=== PATIENT | male | born 1945 | race Caucasian/White ===

== ENCOUNTER 2016-10-19 17:25 | Emergency (ER) | payer MEDICARE, BC ==
[~2016-10-19] VITALS: Ht 177.8 cm; Wt 79.4 kg
[~2016-10-19 17:25] MED LIST: ACET325T9 PO; GABA-586 PO; GUAR1TAB6 PO; LORA5TAB7 PO; MELO15TA6 PO; MULT-189 PO; NAPR250T PO
--- NOTE | 2016-10-19 19:03 | PHYS DOC ---
Past Medical History Past Medical History: Cancer, GERD Past Surgical History: Appendectomy Additional Past Surgical Histo: Prostatectomy, angiogram Alcohol Use: Rarely Drug Use: None Adult General Chief Complaint Chief Complaint: POST-OP PROBLEM HPI HPI 71-year-old male with a past medical history of having an abdominal angiogram performed on last Saturday. This was performed at [facility]. Presenting to the emergency today after having right groin pain this started approximately 1 hour ago. He reports getting in his car when he had a sudden pain in his right groin that was 10 out of 10. It was nonradiating. He denies any swelling in his groin at that time. Over the past hour his pain has improved. Currently he is 3 out of 10. He reports normal sensation in his right lower extremity with normal strength. Review of systems is negative for chest pain shortness of breath abdominal pain nausea vomiting fevers or chills. He denies hematuria or bloody stools. All other review of systems is negative unless otherwise noted in history of present illness. Review of Systems Review of Systems SEE ABOVE. Allergies Allergies Allergies Coded Allergies Type Severity Reaction Last Updated Verified Penicillins Allergy Intermediate Rash 09/10/13 Yes Physical Exam Physical Exam Constitutional: Well developed, well nourished, no acute distress, non-toxic appearance. HENT: Normocephalic, atraumatic, bilateral external ears normal, oropharynx moist, no oral exudates, nose normal. [] Eyes: PERRLA, EOMI, conjunctiva normal, no discharge. Neck: Normal range of motion, no tenderness, supple, no stridor. Cardiovascular:Heart rate regular rhythm, no murmur [] Lungs & Thorax: Bilateral breath sounds clear to auscultation Abdomen: Bowel sounds normal, soft, no tenderness, no masses, no pulsatile masses. The patient's right groin shows no swelling. The patient's incision site is clean dry and intact. There is no pulsatile mass present. No mass with Valsalva maneuver present. The patient's right lower extremity is neurovascularly intact with 2 second cap refill. nl sensation and motor. Palpable pulse in the right dorsalis pedis. Skin: Warm, dry, no erythema, no rash. [] Back: No tenderness, no CVA tenderness. Extremities: No tenderness, no cyanosis, no clubbing, ROM intact, no edema. [] Neurologic: Alert and oriented X 3, normal motor function, normal sensory function, no focal deficits noted. Psychologic: Affect normal, judgement normal, mood normal. Current Patient Data Vital Signs Vital Signs Date Time Temp Pulse Resp B/P Pulse Ox O2 Delivery O2 Flow Rate FiO2 10/19/16 20:43 76 18 140/73 97 Room Air 10/19/16 17:43 97.9 97.9 EKG EKG [] Radiology/Procedures Radiology/Procedures [] Course & Med Decision Making Course & Med Decision Making Pertinent Labs and Imaging studies reviewed. (See chart for details) 71-year-old male presenting to the emergency department today after having a abdominal angiogram performed at a local [facility]. he complains today of right groin pain. Vital signs unremarkable. Pertinent physical exam shows no swelling in the groin. The patient had normal neurovascular status distally. Ultrasound performed showed normal femoral artery. no pseudoaneurysm formation. There was hematoma formation likely 2/2 to the procedure. I discussed the case with Dr Crespo who agreed with the plan. I recommended the patient follow up with his vascular surgeon over the next day or 2 for further evaluation workup and care. Dragon Disclaimer Dragon Disclaimer This electronic medical record was generated, in whole or in part, using a voice recognition dictation system. Departure Departure Impression: Primary Impression: Right groin pain Disposition: 01 HOME, SELF-CARE Condition: STABLE Referrals: LUISA WEINBERG MD (PCP) Patient Instructions: Groin Site Care Additional Instructions: Thank you for allowing us to participate in your care today. Followup with your primary care physician in 3 days if your symptoms do not improve. If you do not have a primary care provider you can ask for a list of our primary care providers. Return to the emergency department you have any new or concerning findings. This should be evaluated by the primary care physician and any necessary consulting services for continued management within a few days after discharge. Return to emergency room if you have any new or concerning symptoms including but not limited to fever, chills, nausea, vomiting, intractable pain, any new rashes, chest pain, shortness of air, uncontrolled bleeding, difficulty breathing, and/or vision loss. MARILIN CR MD Oct 19, 2016 19:03
--- NOTE | 2016-10-19 20:06 | RAD ---
PROCEDURE Duplex evaluation of the right inguinal region 10/19/2016 HISTORY Severe right groin pain. History of recent arteriogram. TECHNIQUE Using a combination of real-time ultrasound imaging and color flow and pulse Doppler imaging techniques, duplex evaluation of the right common femoral and proximal right superficial femoral arteries and veins in the right inguinal region was performed. Multiple images were obtained. FINDINGS The right common femoral artery and proximal right superficial femoral artery are patent. The proximal right superficial femoral vein and right common femoral vein are patent. Mild atherosclerotic plaque formation is seen involving the right common femoral artery. No pseudoaneurysm is seen. A 3.2 centimeter hematoma is seen 2 centimeters deep to the skin surface. IMPRESSION 3.2 centimeter hematoma is seen in the right inguinal region. No pseudoaneurysm is seen. Electronically signed by: Rafael Reece MD (Oct 19, 2016 20:05:39)
[2016-10-19 20:43] VITALS: BP 140/73
== END 2016-10-19 21:20 | disposition home or self-care (01) ==
LOC: ER 17:25
DX: R10.30 Lower abdominal pain, unspecified (principal); K21.9 Gastro-esophageal reflux disease without esophagitis; Z88.0 Allergy status to penicillin; Z90.49 Acquired absence of other specified parts of digestive tract
CPT/HCPCS: 93923; 99284-25

== ENCOUNTER → 2018-11-19 | Outpatient (CLI) | payer MEDICARE, BC ==
[~2018-11-19] MED LIST changes: +ATOR40TA59 PO; +COLE1TAB2 PO; -GABA-586 PO; +GABA300C18 PO; +HYDR-2761 PO; +NAPR220T70 PO; +PSYL0.5215 PO; +RANI300T PO
--- NOTE | 2018-11-19 12:55 | KCIC ---
EXAMINATION: Magnetic resonance imaging (MRI) of the cervical spine without contrast 11/19/2018 12:30 PM HISTORY: Degenerative disc disease of the cervical spine. Neck pain, worsening for the past few months. TECHNIQUE: Multiplanar multi-weighted MRI of the cervical spine was performed without intravenous contrast using the standard cervical spine protocol. Contrast information: None administered COMPARISON: MRI cervical spine April 13, 2014 FINDINGS: The alignment of the cervical spine is normal. There is subtle height loss involving T3 which appears chronic. No acute fracture is identified; however, if trauma is suspected, a CT scan would be a more sensitive examination for fractures. The craniocervical junction is normal. The visualized portions of the skull base and the posterior fossa are normal. The spinal cord demonstrates normal signal intensity on all sequences. There is moderate disc height loss at C6-C7 with endplate remodeling and vacuum disc phenomenon. There is disc desiccation at all levels of the cervical spine. No soft tissue abnormality is identified. Normal signal voids are present in the vertebral arteries. C2-C3: The disk is normal in configuration. There is no facet arthropathy. There is no uncovertebral joint disease. There is no neuroforaminal stenosis. There is no spinal canal stenosis. C3-C4: There is a central disc protrusion. There is mild facet arthropathy. There is no uncovertebral joint disease. There is no neuroforaminal stenosis. There is no spinal canal stenosis. C4-C5: There is mild disc bulge. There is mild facet arthropathy. There is no uncovertebral joint disease. There is mild neuroforaminal stenosis. There is mild spinal canal stenosis without deformity of the cord. C5-C6: There is mild disc bulge asymmetric to the right. There is moderate facet arthropathy. There is mild uncovertebral joint disease. There is moderate right and mild left neuroforaminal stenosis. There is mild spinal canal stenosis. C6-C7: There is a posterior disc osteophyte complex asymmetric to the right. There is moderate to advanced facet arthropathy. There is moderate uncovertebral joint disease. There is severe right and moderate left neuroforaminal stenosis. There is mild to moderate spinal canal stenosis common exacerbated by ligamentum flavum infolding. C7-T1: Mild disc bulge asymmetric to the right. There is no facet arthropathy. There is no uncovertebral joint disease. There is no neuroforaminal stenosis. There is no spinal canal stenosis. IMPRESSION: Mild to moderate degenerative changes of the cervical spine as described in detail above. Electronically signed by: Karli Caballero MD (11/19/2018 12:52 PM) [facility]
== END | disposition home or self-care (01) ==
LOC: KCIC MRI 12:11
PROVIDERS: ATTEND Family Medicine
DX: M47.812 Spondylosis without myelopathy or radiculopathy, cervical region (principal); M48.02 Spinal stenosis, cervical region; M50.21 Other cervical disc displacement, high cervical region; M12.88 Other specific arthropathies, not elsewhere classified, other specified site
CPT/HCPCS: 72141

== ENCOUNTER → 2018-12-02 | Outpatient (CLI) | payer MEDICARE, BC ==
[~2018-12-02] MED LIST changes: +IOHEXOL 180 MG/ML 10 ML VIAL. ONE; +methylPREDNISolone ACETATE 40 MG/ML VIAL. ONE; +methylPREDNISolone ACETATE 80 MG/ML VIAL. ONE
--- NOTE | 2018-12-02 20:17 | PAIN ---
DATE OF SERVICE: 12/02/2018 PROGRESS NOTE FOR PAIN CLINIC DIAGNOSIS: Cervical radiculopathy with cervical degenerative disk disease and cervical spinal stenosis. HISTORY OF PRESENT ILLNESS: The patient is a 73-year-old male who returns for followup, last seen in 2014. The patient underwent cervical epidural steroid injection with good results he reports at that time. The pain has been returning now for about 6 months to a year and has been in the base of the neck and shoulders, worse on the left than the right, but present bilaterally and into the left arm and upper extremity with some tingling and numbness in the forearm, into the hand on the left side, but without loss of strength. The patient reports also some significant pain in the base of the neck and on the right side. The patient reports it is constant, sharp, stabbing, changes during the day with activity, worse with reaching over his left arm, worse with rotational motion of the cervical spine, both laterally, worse on the left and right. The patient reports it is tingling and numbness in the arm on the left side primarily. He reports no loss of motor function, but some fatigability with the left arm and hand with picking up items, reaching over his arm, reaching over his head that is with his left arm, repetitive motions and driving a car with his left arm. The patient reports it does not awaken him from sleep at night, does not affect his bowel or bladder control or his ability to walk. He has had the exercise, which he is doing currently, which seemed to help to some extent. He has had some physical therapy as well and some massage techniques in the neck and still playing golf and reports it does not disturb his game very much. He had some epidural injections again in 2014 and did very well with those. The patient has hydrocodone available, also he is taking Tylenol, Aleve, Motrin, all of which do seem to help except for the Tylenol. The patient reports no loss of motor function, but significant fatigability with the left arm, especially compared to the right. The patient reports no significant disability from the pain. PAST MEDICAL HISTORY: Significant for gastroesophageal reflux, irritable bowel syndrome, prostate cancer, seasonal sinus allergies, headaches, arthritis. PREVIOUS SURGERIES: Includes prostatectomy, appendectomy and tonsillectomy. CURRENT MEDICATIONS: Include Tylenol, Metamucil, Aleve, hydrocodone, colestipol, Zantac, and atorvastatin. ALLERGIES: THE PATIENT IS ALLERGIC TO PENICILLIN. FAMILY HISTORY: Significant for no major medical problems or conditions that he is aware of. SOCIAL HISTORY: The patient does not smoke, drinks about 1 beer a day, no other alcohol, and does not use any illegal, illicit or recreational drugs. He is and lives with his spouse. Lives locally in [place], [place] and is currently retired, but stays very active, especially with playing golf. REVIEW OF SYSTEMS: Positive for those items mentioned in history of present illness. All systems reviewed and otherwise negative. It is complete, full and well documented on the patient's chart. PHYSICAL EXAMINATION: VITAL SIGNS: The patient's blood pressure is 132/85, pulse 69, respirations 18, temperature 98.1 degrees Fahrenheit, height 5 feet 10 inches, weighs 185 pounds. GENERAL: The patient is awake, alert, oriented, appropriate, very pleasant demeanor. HEENT: Shows normocephalic, atraumatic. Extraocular movements are intact and symmetrical. The patient is wearing eyeglasses. Oral cavity: Mucous membranes are moist and pink. Dentition is intact. NECK: Shows anterior throat supple without palpable lymphadenopathy noted. Swallow reflex is symmetrical. CHEST: Shows normal on inspection. Breath sounds are clear to auscultation bilaterally. HEART: Shows S1, S2 clear. No murmurs auscultated. ABDOMEN: Soft, nontender, nondistended. No palpable organomegaly is noted. No rebound or guarding demonstrated. BACK: Shows spine grossly in the midline. Normal-appearing cervical lordotic curvature, thoracic kyphotic curvature and lumbar lordotic curvature. Cervical paraspinous muscle shows symmetrical on inspection, on palpation shows some moderate tenderness diffusely in the upper, middle and lower distribution of the paraspinous muscles bilaterally, but only diffusely without significant radiation, without atrophy, hypertrophy and without trigger points noted. The patient shows good rotational motion of cervical spine with significant tenderness, especially with far lateral rotation to the left past 45 degrees and moderate tenderness to the right at 45 degrees and past full extension, again with some pain in the base of the neck bilaterally, but better with forward flexion, he is able to perform fully also. EXTREMITIES: The patient's upper extremities show deep tendon reflexes 2+ in the biceps and triceps tendons. Motor exam is strong with agency recruiter strength rated at 5/5, as is bicep and tricep flexion. Peripheral pulses are 2+ in radial distribution. No peripheral edema is noted. The patient does have slightly larger appearing fingers on the left hand than the right. No pitting of the edema. The patient is taking his wedding ring off his left hand and does have obvious depression where this was present and reports has been off for several weeks. Shoulder shrug is strong and intact without loss of strength on resistance, as is abduction of the shoulders to 90 degrees without loss of strength on resistance as well. Options were discussed with the patient. The patient's old chart was reviewed as his current medication regimen updated. Current review of systems updated today as well. We will proceed with a cervical epidural steroid injection today with fluoroscopic guidance. Risks were again discussed including, but not limited to bleeding, infection, possibility of epidural hematoma, subsequent neurological compromise, dural puncture, headaches, spinal cord and/or nerve damage, side effects of steroid medication and poor results regarding pain control. The patient understands and wished to proceed. The patient will return to the clinic in approximately 2 weeks for followup, was counseled on return appointment, activity level and side effects to be aware of. DIAGNOSIS: Cervical radiculopathy with cervical degenerative disk disease and cervical spinal stenosis. PROCEDURE: Cervical epidural steroid injection, translaminar approach at C6-C7 level using C-arm fluoroscopic guidance under sterile prep and drape using local anesthetic. MEDICATION INJECTED: A total of 120 mg Depo-Medrol plus 5 mL of preservative-free normal saline and 2 mL of Isovue for contrast. CONDITION AT DISCHARGE: Stable. The patient tolerated the procedure well, had no complications. KEON LOPEZ MD DR: ERICA/dimitris JOB#: [id number] / [id number]
== END | disposition home or self-care (01) ==
LOC: PNCL 10:03
PROVIDERS: ATTEND Anesthesiology
DX: M50.123 Cervical disc disorder at C6-C7 level with radiculopathy (principal); M48.02 Spinal stenosis, cervical region; K21.9 Gastro-esophageal reflux disease without esophagitis; M19.90 Unspecified osteoarthritis, unspecified site; Z85.46 Personal history of malignant neoplasm of prostate; Z90.49 Acquired absence of other specified parts of digestive tract; Z98.890 Other specified postprocedural states; Z90.79 Acquired absence of other genital organ(s); Z79.899 Other long term (current) drug therapy; Z88.0 Allergy status to penicillin; Z72.89 Other problems related to lifestyle
CPT/HCPCS: 62321; J1030; J1040; Q9965

== ENCOUNTER → 2018-12-16 | Outpatient (CLI) | payer MEDICARE, BC ==
--- NOTE | 2018-12-17 00:01 | PAIN ---
DATE OF SERVICE: 12/16/2018 PROGRESS NOTE FOR PAIN CLINIC DIAGNOSES: 1. Cervical radiculopathy with cervical degenerative disk disease and cervical spinal stenosis. 2. Lumbar radiculopathy with lumbar degenerative disk disease. HISTORY OF PRESENT ILLNESS: The patient is a 73-year-old male who returns for followup status post cervical epidural steroid injection x 1. The patient reports doing very well, near 100% improvement with gradual return, but the pain is much less than baseline. The patient reports it is only 2 on a scale of 10 currently, it can be as high as an 8 on a scale of 10. His main pain is in the low back and the right lower extremity. The patient reports it is into the right hip, right lateral thigh, anterior thigh, much more noticeable with increased activity over the past few weeks with the yard work, does not awaken him from sleep at night, better when he is off his feet, but worse when he is active up and around, walking, standing, stooping and bending. The patient reports it is aching and stabbing. He has some radiating pain in the right leg as well as the neck and shoulder. He is doing much better again with close to 100% improvement, although gradual return of the pain only moderately in the base of the neck and shoulders. The patient reports no new motor or sensory deficits, no new bowel or bladder incontinence or other complaints. PHYSICAL EXAMINATION: VITAL SIGNS: The patient's blood pressure is 145/80, pulse is 65, respirations are 18, temperature is 98.1 degrees Fahrenheit, weight is 180 pounds. GENERAL: The patient is awake, alert, oriented, appropriate, very pleasant demeanor. HEENT: Head shows normocephalic, atraumatic. Extraocular movements are intact and symmetrical. Oral cavity, mucous membranes are moist and pink. Dentition is intact. NECK: Shows anterior throat supple without palpable lymphadenopathy noted. Swallow reflex is symmetrical. CHEST: Shows normal on inspection. Breath sounds clear to auscultation bilaterally. HEART: Shows S1, S2 clear. No murmurs auscultated. ABDOMEN: Soft, nontender, nondistended. No palpable organomegaly is noted. No rebound or guarding demonstrated. BACK: Shows spine grossly in the midline. Normal-appearing cervical lordotic curvature, thoracic kyphotic curvature and lumbar lordotic curvature. Cervical paraspinous muscle shows symmetrical on inspection; on palpation shows some mild tenderness diffusely in the inferior aspect of the cervical paraspinous muscles as well as the bilateral trapezius musculature superiorly, but without radiation. The patient has good rotational motion of cervical spine laterally as well as extension and flexion without significant pain reported. His low back shows some moderate tenderness in the middle and lower distribution of paraspinous muscles, slightly more on the right than the left in the lumbar distribution, but without difficulty with rotation as far as greater than 10 degrees right and left as well as extension greater than 10 degrees, forward flexion 45 degrees without significant pain reported. EXTREMITIES: The patient's upper extremities show deep tendon reflexes 2+ in the biceps and triceps tendons. Motor exam is strong with fuel tank sealer and tester strength rated at 5/5 and equal. Lower extremities show deep tendon reflexes 2+ in the patellar tendons, 1+ tendo calcaneus tendons. Motor exam is strong with 5/5 dorsiflexion, extension and equal. Peripheral pulses are 2+ radial, 1+ posterior tibia. No peripheral edema is noted in the upper or lower extremities. Options were discussed with the patient. The patient's old chart was reviewed as was his current medication regimen updated. Current review of systems updated today as well. We will proceed with a lumbar epidural steroid injection today with fluoroscopic guidance. Risks were discussed including but not limited to bleeding, infection, possibility of epidural hematoma, subsequent neurological compromise, dural puncture, headaches, spinal cord and/or nerve damage, side effects of steroid medication and poor results regarding pain control. The patient understands and wished to proceed. The patient will return to clinic in approximately 2 weeks for followup, was counseled on return appointment, activity level and side effects to be aware of. DIAGNOSIS: Lumbar radiculopathy with lumbar degenerative disk disease. PROCEDURE: Lumbar epidural steroid injection, translaminar approach L4-L5 level using C-arm fluoroscopic guidance under sterile prep and drape using local anesthetic. MEDICATION INJECTED: A total of 120 mg Depo-Medrol plus 10 mL of preservative-free normal saline and 2 mL of contrast CONDITION AT DISCHARGE: Stable. The patient tolerated the procedure well, had no complications. KEON LOPEZ MD DR: ERICA/dimitris JOB#: [id number] / [id number]
== END ==
LOC: PNCL 10:29
PROVIDERS: ATTEND Anesthesiology
DX: M51.16 Intervertebral disc disorders with radiculopathy, lumbar region (principal); M54.5 Low back pain; M79.661 Pain in right lower leg
CPT/HCPCS: 62323; J1030; J1040; Q9965

== ENCOUNTER → 2020-10-27 | Outpatient (CLI) | payer MEDICARE, BC ==
[~2020-10-27] MED LIST changes: +EZET10TA20 PO; +FAMO-63 PO; +HYDR25SU18 RC
--- NOTE | 2020-10-27 10:57 | PDOC ---
Progress Note - Pain Clinic Date of Service: DOS: DATE: 10/27/20 TIME: 10:54 Diagnosis: Dx: Cervical radiculopathy with cervical degenerative disc disease and cervical spinal stenosis Lumbar radiculopathy with lumbar degenerative disc disease History or Present Illness: HPI: 75-year-old male returns for follow-up status post both cervical and lumbar epidural steroid injections last seen December 2018. Patient did well with each 1 of these and reports doing fairly well over the past year or so but the pain is began to return now for the past 6 to 8 months without any specific injury or accident but is increased in the base the neck and shoulders mostly on the left side but also on the right radiating into the upper extremities more on the left than the right as well into the anterior lateral deltoid anterior bicep on the left side to the forearm patient reports some in the right shoulder but only in the shoulder patient reports is worse with rotation motion cervical spine lifting items reaching over his head with his left arm compared to his right do repetitive motions weightbearing weight lifting patient describes the pain is aching and sharp stabbing at times shooting also some low back pain which is dull aching patient rates the pain is 8 on scale 10 is worse over the past week 5 on average for its least is a 6 today patient reports no loss of motor function generally better with sitting or laying down does not awaken from sleep at night in either the back or the neck. Patient reports no other findings complaints. Physical Exam: VS: Blood pressure is 130/79 pulse 71 respirations 18 temperature 98.2 F weight is 179 pounds PE: PHYSICAL EXAMINATION: GENERAL: The patient is awake, alert, oriented, appropriate, very pleasant demeanor HEENT: Shows normocephalic, atraumatic. Extraocular movements are intact and symmetrical. Oral cavity: Mucous membranes moist and pink. Dentition is intact. NECK: Shows anterior throat supple without palpable lymphadenopathy noted. Swallow reflex symmetrical. CHEST: Shows normal on inspection. Breath sounds are clear bilaterally, no rales rhonchi or wheezes auscultated. HEART: Shows S1, S2 clear. No murmurs auscultated. ABDOMEN: Soft, nontender, nondistended, obese. No palpable organomegaly is noted. No rebound or guarding demonstrated. BACK: Shows spine grossly in the midline. Normal-appearing cervical lordotic cu rvature. Cervical paraspinous muscles show symmetrical with inspection, palpation shows moderate tenderness diffusely bilaterally diffusely without significant radiation. Patient is good rotation motion cervical spine both laterally greater than 45 degrees right and left as well as full extension full forward flexion without significant difficulty. There is slightly increased th oracic kyphosis, some minor flattening of the lumbar lordotic curvature. Lumbar paraspinous muscles show symmetrical on inspection, on palpation shows some moderate tenderness diffusely throughout the upper, middle and lower distribution of the paraspinous muscles bilaterally and also into the lower thoracic paraspinous musculature, firm and tender, but without specific trigger points, without radiation of pain. The patient has good rotational motion of the lumbar spine, both laterally as well as extension and flexion without significant difficulty. No tenderness over the spinous processes, sacrum or sacroiliac regions. EXTREMITIES: Lower extremities show deep tendon reflexes 2+ in the patellar and tendo calcaneus tendons. Motor exam is 5 on a scale of 5 with right dorsiflexion, extension, quadriceps and hamstring flexion and 5/5 on the left. Peripheral pulses are 1+ posterior tibial. No peripheral edema is noted bilaterally. Lower extremities are warm and dry to touch, equal in color and appearance. Upper extremities show deep tendon reflexes 2+ in the bicep and triceps tendons, motor exam is strong with bandoleer straightener stamper strength rated 5 out of 5 as is biceps and triceps flexion bilaterally. Peripheral pulses are 2+ radial no peripheral edema is noted shoulder shrug is strong and intact without loss of strength on resistance as is abduction of the shoulder 90 degrees without loss of strength bilaterally. SKIN: Shows warm and dry, good turgor. No edema. No sores, rashes or bruising throughout. Procedure: Procedure: Options were discussed with the patient. Patient chart reviews his current medication regimen updated current review of systems updated today as well. We will proceed with a cervical epidural steroid injection today with fluoroscopic guidance. Risks were discussed including but not limited to: Bleeding, infection, possibility of epidural hematoma and subsequent neurological compromise, dural puncture, headaches, spinal cord and/or nerve damage, side effects of steroid medication, and poor results regarding pain control. Patient understands and wished to proceed. Patient will return to clinic in approximate 2 weeks for follow-up, was counseled as return appointment activity level and side effects to be aware of. Medication Injected: Med Injected: Procedure cervical epidural steroid injection at the C6-7 level, using local anesthetic under sterile prep and drape using C-arm fluoroscopic guidance under local anesthesia medications injected ; 120 mg Depo-Medrol + 5 mL normal saline and 2 mL contrast; condition at discharge is stable patient tolerated procedure well. and had no complications Condition at Discharge: Condition at Discharge: Condition at discharge stable, patient alert the procedure well and had no complications. KEON LOPEZ MD Oct 27, 2020 10:57
--- NOTE | 2020-10-27 10:58 | PDOC4 ---
PROCEDURE Procedure Patient was consented for cervical epidural steroid injection. Risks were d iscussed including but not limited to: Bleeding, infection, possibility of epidural hematoma and subsequent neurological compromise, dural puncture, headaches, spinal cord and/or nerve damage, side effects of steroid medication, and poor results regarding pain control. Patient understands and wished to proceed. Procedure cervical epidural steroid injection at the C6-7 level, using local anesthetic under sterile prep and drape using C-arm fluoroscopic guidance under local anesthesia medications injected ; 120 mg Depo-Medrol + 5 mL normal saline and 2 mL contrast; condition at discharge is stable patient tolerated procedure well. and had no complications KEON LOPEZ MD Oct 27, 2020 10:58
== END | disposition home or self-care (01) ==
LOC: PNCL 10:02
PROVIDERS: ATTEND Anesthesiology
DX: M50.10 Cervical disc disorder with radiculopathy, unspecified cervical region (principal); M48.02 Spinal stenosis, cervical region; M51.16 Intervertebral disc disorders with radiculopathy, lumbar region; Z79.899 Other long term (current) drug therapy; Z72.89 Other problems related to lifestyle; Z88.0 Allergy status to penicillin
CPT/HCPCS: 62321; J1030; J1040; Q9965

== ENCOUNTER → 2021-02-01 | Outpatient (CLI) | payer MEDICARE, BC ==
[~2021-02-01] MED LIST changes: -IOHEXOL 180 MG/ML 10 ML VIAL. ONE; -methylPREDNISolone ACETATE 40 MG/ML VIAL. ONE; -methylPREDNISolone ACETATE 80 MG/ML VIAL. ONE
--- NOTE | 2021-02-01 15:59 | KCIC ---
CT HEAD INDICATION: Headache COMPARISON: None Available. Exposure: One or more of the following individualized dose reduction techniques were utilized for thi s examination: 1. Automated exposure control 2. Adjustment of the mA and/or kV according to patient size 3. Use of iterative reconstruction technique TECHNIQUE: 5 mm contiguous axial images were obtained from the skull base to the vertex in both bone and soft tissue algorithm. FINDINGS: No abnormal attenuation within the brain parenchyma. No evidence of acute intracranial hemorrhage. No extra-axial fluid collections. No mass effect or midline shift. Ventricular size is appropriate. Basal cisterns are patent. No fractures identified.Bustos-white differentiation is preserved.Globes and orbits are within normal l imits. Mild mucosal thickening bilateral ethmoidal sinus and bilateral maxillary sinuses. IMPRESSION: No acute intracranial findings. Electronically signed by: Lizandro Hilliard MD (02/01/2021 3:56 PM) [id number]
== END ==
LOC: KCIC CT 14:14
PROVIDERS: ATTEND Family Medicine
DX: G44.89 Other headache syndrome (principal)
CPT/HCPCS: 70450

== ENCOUNTER → 2021-02-27 | Outpatient (CLI) | payer MEDICARE, BC ==
[~2021-02-27] MED LIST changes: +OMEP40CA7 PO
--- NOTE | 2021-02-27 08:25 | PDOC ---
Progress Note - Pain Clinic Date of Service: DOS: DATE: 02/27/21 TIME: 08: Diagnosis: Dx: Cervical radiculopathy with cervical degenerative disease and cervical spinal stenosis Lumbar radiculopathy lumbar degenerative disc disease History or Present Illness: HPI: 75-year-old male returns for follow-up status post cervical epidural steroid injection last seen October 27, 2020 right leg patient had lumbar epidural steroid injection and 2019 patient did very well with each of these last injection only lasting shorter period than previously patient reports his main complaint is that he had a "flare up" about a week ago with his low back was significantly painful with radiating pain into the lower extremities bilaterally the posterior gluteus thighs lateral thighs anterior thighs medial thighs but this is gotten somewhat better with time and over the past half week or so has been back to baseline patient reports still significant constant ache in the low back itself rated as a 9 on scale 10 is worst 7 on average 3 its least is a 3 today patient reports is aching and sharp can be stabbing and shooting with radiating pain to the lower extremities. Patient reports is worse with walking standing changing positions doing yard work bending stooping repetitive motions or sitting for pro longed periods patient reports is generally better with laying down does not awaken him from sleep most nights. Patient reports no loss of motor function no bowel or bladder incontinence Physical Exam: VS: Pressure is 142/83 pulse 73 respirations 16 temperature is 98.1 F weight is 184 pounds PE: PHYSICAL EXAMINATION: GENERAL: The patient is awake, alert, oriented, appropriate, very pleasant in demeanor HEENT: Shows normocephalic, atraumatic. Extraocular movements are intact and symmetrical. Oral cavity: Mucous membranes moist and pink. NECK: Shows anterior throat supple without palpable lymphadenopathy noted. Swallow reflex symmetrical. CHEST: Shows normal on inspection. Breath sounds are clear bilaterally, no rales rhonchi or wheezes auscultated. HEART: Shows S1, S2 clear. No murmurs auscultated. ABDOMEN: Soft, nontender, nondistended, obese. No palpable organomegaly is noted. BACK: Shows spine grossly in the midline. Normal-appearing cervical lordotic curvature. Cervical paraspinous muscles show symmetrical with inspection, on palpation some mild tenderness in the inferior aspect the cervical paraspinous muscles bilaterally right equal to left without specific trigger points. Patient shows full rotation motion cervical spine both laterally as well as extension flexion without significant difficulty. There is slightly increased thoracic kyphosis, some minor flattening of the lumbar lordotic curvature. Lumbar paraspinous muscles show symmetrical on inspection, on palpation shows some moderate tenderness diffusely throughout the upper, middle and lower distribution of the paraspinous muscles but without specific trigger points, without radiation of pain. The patient has good rotational motion of the lumbar spine, both laterally as well as extension and flexion without significant difficulty. No tenderness over the spinous processes, sacrum or sacroiliac regions. EXTREMITIES: Lower extremities show deep tendon reflexes 2+ in the patellar and tendo calcaneus tendons. Motor exam is 5 on a scale of 5 with right dorsiflexion, extension, quadriceps and hamstring flexion and 5/5 on the left. Peripheral pulses are 1+ posterior tibial. No peripheral edema is noted bilaterally. Lower extremities are warm and dry to touch, equal in color and appearance. Upper extremity show deep tendon reflexes 2+ in the bicep tricep tendons, motor exam strong with project manager strength rated 5 out of 5 as is bicep and tricep flexion. Peripheral pulses are 2+ radial. SKIN: Shows warm and dry, good turgor. No edema. No sores, rashes or bruising throughout. Procedure: Procedure: Options discussed with the patient. Patient's old chart was reviewed his current medication regimen updated current review of systems updated today as well. We will hold on further injections at this time as patient's flare has decreased also discussed Medrol Dosepak which we will try if not significantly improved patient will return for reevaluation after Medrol Dosepak is completed. Patient was given instructions well side effects aware of with the medication. Medication Injected: Med Injected: None Condition at Discharge: Condition at Discharge: Condition at discharge is stable. KEON LOPEZ MD Feb 27, 2021 08:25
== END | disposition home or self-care (01) ==
LOC: PNCL 07:56
PROVIDERS: ATTEND Anesthesiology
DX: M50.10 Cervical disc disorder with radiculopathy, unspecified cervical region (principal); M48.02 Spinal stenosis, cervical region; M51.16 Intervertebral disc disorders with radiculopathy, lumbar region; Z88.0 Allergy status to penicillin; Z72.89 Other problems related to lifestyle; Z79.899 Other long term (current) drug therapy
CPT/HCPCS: 99212; G0463